=== PATIENT | male | born 1960 | race African-American/Black ===

== ENCOUNTER 2019-08-12 15:49 | Emergency (ER) | payer SELFPAY ==
[2019-08-12 16:04] VITALS: TEMP 97.5; BMI 25.7
--- NOTE | 2019-08-12 16:04 | PDOC ---
Rapid Medical Evaluation Time Seen by Provider: 08/12/19 15:59 Medical Evaluation: 08/12/19 15:59 CC: lip lac s/p trip and fall. Last Td- 05/30 PE: BP-189/126. Skin cool and moist. Through and through laceration to right lower lip Orders: labs, ekg Patient to proceed to ER for evaluation. 08/12/19 16:03 Discharge Disposition - Diagnosis Lip laceration, Fall - Referrals - Patient Instructions - Post Discharge Activity
[2019-08-12] MEDS ORDERED: DIPHTH,PERTUSS(ACELL),TET 0.5 ML DISP.SYRIN IM ONE (16:51)
--- NOTE | 2019-08-12 17:19 | PDOC ---
Attending Attestation - Resident Resident Name: LacieSaSade - ED Attending Attestation I have performed the following: I have examined & evaluated the patient, The case was reviewed & discussed with the resident, I agree w/resident's findings & plan, Exceptions are as noted - HPI HPI: 08/12/19 17:16 this 59 yo male was walking on the sidewalk when he tripped on uneven pavement and fell. He sustained a thru and thru mandibular lip laceration. He denies any LOC - Physicial Exam PE: 08/12/19 17:33 slender alert and ambulatory 59 yo male p/w lip laceration head no scalp lacerations Facial exam there are 2 linear horizontal lacerations on the mandibular lip that are 1.5 cm in length and parallel to each other Oral fractured rt maxillary incisor with incisal edge missing , reproducible occlusion, no gingival tears evident neck no midline cervical tenderness extremities no deformities neuro axox3, ambulatory 08/12/19 17:44 08/12/19 17:49 - Medical Decision Making 08/12/19 17:49 will repeat VS pt had last tetanus this May for work reasons plan irriagte lacerations and close w sutures,place on antibiotics and refer to his dentist 08/12/19 17:51 08/12/19 18:33 his BP is very high and he states he only takes norvasc 10 mg and he had not taken yet today-he DENIES any visual changes,headache,chest pain,shortness of breath he has an appt with his primary physician tomorrow to address his HTN concerns
[2019-08-12] MEDS ORDERED: amLODIPine BESYLATE 10 MG TABLET (FP) PO ONE (18:30)
[2019-08-12] MEDS ORDERED: HYDROCHLOROTHIAZIDE 25 MG TABLET (FP) PO ONE (18:32)
--- NOTE | 2019-08-12 18:42 | PDOC ---
History of Present Illness - General Chief Complaint: Injury Stated Complaint: FALL Time Seen by Provider: 08/12/19 15:59 History Source: Patient Exam Limitations: No Limitations - History of Present Illness Initial Comments: 08/12/19 19:11 59yo M with PMH of HTN presenting to the ED with a lip laceration s/p fall. Pt says he was outside walking and tripped. He got up afterward and walked to the ED. He denies LOC, chest pain, sob, headache, changes in vision, numbness/ tingling, abdominal pain, n/v/d. His last tetanus shot was in 3m ago in May for a job. He takes his BP meds in the evenings and has an appointment with his PMD tomorrow. Past History - Past Medical History Allergies/Adverse Reactions: Allergies Allergy/AdvReac Type Severity Reaction Status Date / Time No Known Allergies Allergy Verified 08/12/19 16:04 Home Medications: Ambulatory Orders Amox-Tr/K Cl [Augmentin - 875Mg Tablet] 1 tab PO BID #14 tablet 08/12/19 COPD: No HTN: Yes - Immunization History Immunization Up to Date: Yes - Psycho Social/Smoking Cessation Hx Smoking History: Never smoked Have you smoked in the past 12 months: No Information on smoking cessation initiated: No Hx Alcohol Use: No Drug/Substance Use Hx: No Review of Systems - Review of Systems Constitutional: No: Symptoms Reported HEENTM: Yes: See HPI, Other (lip laceration. ) Respiratory: No: Symptoms reported Cardiac (ROS): No: Symptoms Reported ABD/GI: No: Symptoms Reported Musculoskeletal: No: Symptoms Reported Integumentary: No: Symptoms Reported Neurological: No: Symptoms reported *Physical Exam - Vital Signs Last Vital Signs Temp Pulse Resp BP Pulse Ox 97.5 F L 110 H 18 189/126 H 99 08/12/19 15:59 08/12/19 15:59 08/12/19 15:59 08/12/19 15:59 08/12/19 15:59 - Physical Exam General Appearance: Yes: Nourished, Appropriately Dressed. No: Apparent Distress HEENT: positive: EOMI, RED, Other (lip laceration on interior and exterior; through and through with tooth fragments. Tooth #8 has prosthesis which lacerated lip and is in fragments in wound. ) Neck: positive: Trachea midline, Supple Respiratory/Chest: positive: Lungs Clear, Normal Breath Sounds. negative: Crackles, Rales, Rhonchi, Stridor, Wheezing Cardiovascular: positive: Regular Rhythm, Regular Rate, S1, S2. negative: Edema , JVD, Murmur Gastrointestinal/Abdominal: positive: Normal Bowel Sounds, Soft. negative: Tender Musculoskeletal: negative: CVA Tenderness Extremity: positive: Normal Capillary Refill. negative: Pedal Edema Integumentary: positive: Normal Color, Dry, Warm Procedures - Laceration/Wound Repair Upper and Lower Lip Wound Length: 2.6 to 5.0 cm Wound Explored: foreign body removed Wound's Depth, Shape: linear Irrigated w/ Saline: Yes Betadine Prep: No Anesthesia: 1% Lidocaine Amount of Anesthetic (ccs): 6 Wound Repaired With: Sutures Suture Size/Type: 6:0 Number of Sutures: 16 ED Treatment Course - Medications Given in the ED: ED Medications Discontinued Medications Generic Name Dose Route Start Last Admin Trade Name Freq PRN Reason Stop Dose Admin Diphtheria/Tetanus/Acell Pertussis 0.5 ml 08/12/19 16:51 08/12/19 17:47 Boostrix - IM 08/12/19 16:52 Not Given .ONCE ONE Medical Decision Making - Medical Decision Making 08/12/19 23:19 59yo M with PMH of htn presenting to ED for laceration. Denies syncope, headache, vision changes, chest pain, sob, edema. labs orderd by rme but cancelled. EKG: nsr 99, pr 160 qtc 495. RBBB. laceration repaired (see procedure note). total of 18 sutures. pt contnues to be hypertensive. home bp meds of amlodipine 10mg given along with hctz 25mg. pt does not have any complaints; no rodriguez, no sob, no cp. has pmd appointment tomorrow. left AMA. pt advised about potential adverse events of uncontrolled htn including stroke, acs, dissection, vision loss, kidney damage, edema, pt understood. ' has capacity to make decisions. rx for augmentin sent to pharmacy. Discharge - Discharge Information Problems reviewed: Yes Clinical Impression/Diagnosis: Lip laceration Qualifiers: Encounter type: initial encounter Qualified Code(s): S01.511A - Laceration without foreign body of lip, initial encounter Fall Qualifiers: Encounter type: initial encounter Qualified Code(s): W19.XXXA - Unspecified fall, initial encounter Hypertension Qualifiers: Hypertension type: unspecified Qualified Code(s): I10 - Essential (primary) hypertension Condition: Improved Disposition: AGAINST MEDICAL ADVICE - Admission No - Additional Discharge Information Prescriptions: Amox-Tr/K Cl [Augmentin - 875Mg Tablet] 1 tab PO BID #14 tablet - Follow up/Referral - Patient Discharge Instructions Patient Printed Discharge Instructions: DI for Laceration Repair, DI for High Blood Pressure Additional Instructions: You were seen in the emergency room today for a laceration to the lip after a fall. It was repaired with sutures; 8 on the bottom and 8 on the top. This needs to be removed in 1 week. You can go to any emergency department, urgent care or your doctor's office. A prescription for an antibiotic was sent to your pharmacy, take as directed. Your blood pressure is really high. You should discuss with this your doctor at the appointment tomorrow. Come back to the emergency room if swelling gets worse, you develop fever, the wound appears infected or if any new concerning symptom develops. Thank you - Post Discharge Activity
[2019-08-12] MEDS ORDERED: amLODIPine BESYLATE 5 MG TABLET (FP) ONE (19:27)
[2019-08-12] MEDS ORDERED: HYDROCHLOROTHIAZIDE 25 MG TABLET (FP) ONE (19:28)
[2019-08-12 19:43] VITALS: PULSE 100
[2019-08-12 20:33] VITALS: BP 208/133
== END 2019-08-12 21:05 | disposition left against medical advice (07) ==
LOC: JER 15:49
PROC: 0CQ10ZZ Repair Lower Lip, Open Approach (ICD-10-PCS; principal; 2019-08-12)
PROC: 0CQ00ZZ Repair Upper Lip, Open Approach (ICD-10-PCS; 2019-08-12)
PROC: 3E0234Z Introduction of Serum, Toxoid and Vaccine into Muscle, Percutaneous Approach (ICD-10-PCS; 2019-08-12)
DX: S01.521A Laceration with foreign body of lip, initial encounter (principal); S02.5XXA Fracture of tooth (traumatic), initial encounter for closed fracture; W18.39XA Other fall on same level, initial encounter; Y93.01 Activity, walking, marching and hiking; Y92.480 Sidewalk as the place of occurrence of the external cause; Y99.8 Other external cause status; I10 Essential (primary) hypertension
CPT/HCPCS: 93005; 93010; 99283-25